=== PATIENT | male | born 1950 | race Caucasian/White ===

== ENCOUNTER 2017-11-01 10:02 | Day surgery (SDC) | payer MEDICARE ==
[2017-10-29 10:14] VITALS: BMI 43.9
--- NOTE | 2017-11-01 05:12 | HP ---
HISTORY AND PHYSICAL CHIEF COMPLAINT: Left postauricular mass. HISTORY OF PRESENT ILLNESS: The patient is a very pleasant 66-year-old male who was referred to my office for evaluation of a 6-9 month history of a lump behind his left ear. The patient states that it is not painful or tender, but it has increased in size over the last few months. He is a nonsmoker. He denies any recent injuries or recent surgeries in the area of the lump. He also denies any complaints of hearing loss. At the time that he was seen in my office clinical examination revealed the patient had a 1-1/2 to 2 cm well circumscribed mobile nontender, nonfluctuant mass located in the left postauricular area. No other suspicious masses were noted. It was recommend the patient undergo excision of this mass under general anesthesia. PAST MEDICAL HISTORY: Past medical history reveals that the patient has an ALLERGY TO SULFA AND BACTRIM. MEDICATIONS: Current medications include Lipitor, lisinopril. There is a history of hypertension, but no history of diabetes mellitus or asthma. REVIEW OF SYSTEMS: Review of systems revealed that the cardiovascular system is positive for hypertension and the metabolic endocrine system is positive for hypercholesterolemia. Remainder of the review of systems is unremarkable. PREVIOUS SURGERIES: Include bilateral cataract surgery and also excision of pilonidal cyst. PHYSICAL EXAMINATION: This patient is a pleasant 66-year-old male who is alert and cooperative. HEENT examination: The patient is normocephalic. Tympanic membranes are normal. Middle ear spaces are free of any fluid or infection. Examination of the left postauricular area reveals that there is a 1-1/2 to 2 cm well circumscribed, nontender, mobile, nonfluctuant mass behind the left ear. No other suspicious masses are noted. Pupils equal, round, react to light and accommodation. Extraocular movements within normal limits. Intranasal examination reveals severe septal deviation with compensatory hypertrophy of the inferior turbinates. Examination of oropharynx, cranial nerves 2 through 12 and remainder of the head and neck exam are within normal limits. Chest/cardiovascular: Both lung mckeon are clear to percussion and auscultation. The patient is in regular sinus rhythm. S1, S2 are present without any murmurs, S3s or S4s. Peripheral pulses are bilaterally symmetrical and within normal limits. ABDOMEN: There is no evidence of any masses, megaly, or tenderness. ABDOMEN: Soft. Skin is unremarkable. Musculoskeletal and neurological within normal limits. Rectal exam is deferred at this time because the patient has this done on a regular basis at his family physician's office. The remainder of physical exam is unremarkable. ASSESSMENT: Left postauricular mass. PLAN: The patient is scheduled to undergo excision of left post auricular mass under general anesthesia. Attention RNs in the pre-surgical area: I have not ordered any pre-surgical prophylactic antibiotics for this patient. If the pharmacy department sends any pre- surgical prophylactic antibiotics to the presurgical area for this patient, that medication should be returned to the pharmacy department and please make sure that the patient's account is credited appropriately. The only medications that I have ordered for this patient to receive in the pre-surgical area is Ofirmev 1000 mg IV to be given once an intravenous line has been established. I have discussed the risks, benefits and alternative therapies for the above-mentioned procedure and for both sedation/analgesia as well as necessary blood product administration, if indicated, as they pertain to this patient. The patient has indicated his or her understanding and acceptance of the risks and procedures discussed. MMODL / IJN: [id number] /
[~2017-11-01 10:02] MED LIST: DEXAMETHASONE SOD PHOSPHATE 10 MG/ML 1 ML VIAL IV ONE; LACTATED RINGERS 1,000 ML IV SCH; MIDAZOLAM 2 MG/2 ML VIAL IV PRN; ONDANSETRON 4 MG/2 ML VIAL IVP ONE; fentaNYL (PF) 50 MCG/ML 2 ML AMP IV PRN
[2017-11-01 10:56] VITALS: RESP 16; TEMP 97.8
[2017-11-01] MEDS ORDERED: LIDOCAINE 1% 20 ML VIAL (10MG/ML) FOR IV START INTRADERMA ONE (11:00)
[2017-11-01] MEDS ORDERED: ACETAMINOPHEN IV (For NPO) 1,000 MG in EMPTY BAG 1 BAG IVPB ONE (11:10)
[2017-11-01] MEDS ORDERED: PROPOFOL 10 MG/ML 20 ML VIAL IV ONE (12:10)
[2017-11-01] MEDS ORDERED: SUCCINYLCHOLINE CHLORIDE VIAL 200 MG/10 ML VIAL IV ONE (12:10)
[2017-11-01] MEDS ORDERED: LIDOCAINE 1% INJ 10MG/ML (20 ML MDV) ONE (12:10)
[2017-11-01] MEDS ORDERED: MIDAZOLAM 2 MG/2 ML VIAL ONE (12:10)
[2017-11-01] MEDS ORDERED: fentaNYL (PF) 50 MCG/ML 2 ML AMP ONE (12:10)
[2017-11-01] MEDS ORDERED: BUPIVACAINE (PF) 0.5% 30 ML VIAL SQ ONE ×4 (12:27→13:46)
[2017-11-01] MEDS ORDERED: BACITRACIN 500 UNIT/GM OINT 28.4 GM TUBE TOPICAL ONE (13:30)
[2017-11-01 14:54] VITALS: BP 140/78; PULSE 62
--- NOTE | 2017-11-03 17:36 | OP ---
OPERATIVE REPORT DATE OF SURGERY: 11/01/2017 PREOPERATIVE DIAGNOSIS: Left postauricular mass. POSTOPERATIVE DIAGNOSIS: Left postauricular mass, final pathology pending. ANESTHESIA: General. OPERATIVE PROCEDURE: Excision of left postauricular mass, approximately 1-1.5 cm in diameter. SURGEON: Dr. Beck. COMPLICATIONS: None. ESTIMATED BLOOD LOSS: Less than 5 mL. OPERATIVE PROCEDURE: The patient is placed operating table in supine position and after uneventful induction and endotracheal intubation, satisfactory general anesthesia was obtained. The patient's left rehan face and ear were prepped and draped in usual customary fashion. The lesion in question was palpated and the proposed incision was outlined in an elliptical fashion. This was done in such a manner as to be able to use the overlying skin for retraction. Next, using a #15 scalpel blade, an incision was made through the skin only in the usual fashion. Next, using a skin hook to retract the superior part of the skin to be excised and a mosquito hemostat dissection was carried down through the subcutaneous tissue and subcutaneous fat down to the overlying periosteum of the skull. A similar procedure was carried out on the inferior portion of this skin flap which was used to retract the mass in question. Next, using the mosquito hemostats and also peanut and sharp dissection, the lesion which was quite adherent to the overlying skin and subcutaneous tissue because of recent inflammation was carefully dissected in such a fashion as not to rupture what appeared to be a capsule which had formed around the lesion. This was done in such a fashion as that the capsule remained intact except toward the end of the dissection there was a very small rupture, but overall the capsule remained intact in the entire mass which was approximately 1-1.5 cm in diameter was excised completely from the patient and was placed in formalin for permanent sectioning. Hemostasis was obtained using electrocautery. The dissection time was somewhat extended. That is to say, normally this type of procedure would take approximately 30 minutes where as this procedure took approximately 90 minutes because of the overlying inflammation and the tedious dissection which was necessary to avoid rupturing the lesion. The underlying space was closed in multiple layers using 4- 0 rapid absorbing Vicryl to reapproximate underlying subcutaneous fat and subcutaneous tissue. The skin edges were carefully approximated using 4-0 Vicryl in an interrupted buried fashion. The skin was further approximated using a single 4-0 chromic suture in a running fashion. Finally, Dermabond tissue glue was applied over the incision itself. At this point, the procedure was terminated. There were no intraoperative complications. The patient tolerated procedure well and was returned to recovery room in satisfactory condition. Again, normal excision time for this size lesion would have been 30 minutes, but because of the chronic inflammation that was around the lesion, the surgery time was extended to approximately 90 minutes. Final pathology is pending. MMODL / IJN: [id number] /
== END 2017-11-01 15:27 | disposition home or self-care (01) ==
LOC: OR 10:02
PROVIDERS: ATTEND Otolaryngology
DX: L72.0 Epidermal cyst (principal); I10 Essential (primary) hypertension; E78.00 Pure hypercholesterolemia, unspecified; Z79.899 Other long term (current) drug therapy; Z88.2 Allergy status to sulfonamides
CPT/HCPCS: 88304; 11442; J2250; J0330; J1100; J0690; J2405; J2001; J3010; J0131; J2704

== ENCOUNTER → 2018-01-14 | Outpatient (CLI) | payer MEDICARE ==
--- NOTE | 2018-01-15 11:12 | ECHOF ---
Referral Reason:I35.9 Nonrheumatic aortic valve disorder, unspecif MEASUREMENTS -------- HEIGHT: 180.3 cm WEIGHT: 145.1 kg BP: 155/74 RVIDd: 3.7 cm (< 3.3) IVSd: 1.5 cm (0.6 - 1.1) LVIDd: 4.8 cm (3.9 - 5.3) LVPWd: 1.5 cm (0.6 - 1.1) IVSs: 2.0 cm LVIDs: 3.1 cm LVPWs: 1.9 cm LA Diam: 3.8 cm (2.7 - 3.8) LAESV Index (A-L): 27.58 ml/m Ao Diam: 3.7 cm (2.0 - 3.7) AV Cusp: 1.6 cm (1.5 - 2.6) MV EXCURSION: 9.761 mm (> 18.000) MV EF SLOPE: 24 mm/s (70 - 150) EPSS: 0.5 cm MV E Trenton: 0.65 m/s MV DecT: 520 ms MV A [place]: 1.06 m/s MV E/A Ratio: 0.62 AV maxP.22 mmHg AV meanP.90 mmHg FINDINGS -------- Sinus rhythm. This was a technically difficult study with suboptimal views. The left ventricular size is normal. There is moderate concentric left ventricular hypertrophy. O verall left ventricular systolic function is normal with, an EF between 60 - 65 %. The right ventricle is mildly enlarged. Normal LA size by volume 22+/-6 ml/m2. The right atrium is normal in size. 5.0mg of Lumason was utilized for enhancement of images There is moderate aortic valve sclerosis. There is mild aortic stenosis present. Peak/mean gradie nt across the Aortic Valve is 35.22mmHg / 16.90mmHg. Mild mitral annular calcification present. The tricuspid valve appears structurally normal. The pulmonic valve was not well visualized. The aortic root size is normal. Normal inferior vena cava with normal inspiratory collapse consistent with estimated right atrial pre ssure of 5 mmHg. There is no pericardial effusion. CONCLUSIONS -------- 1. Sinus rhythm. 2. This was a technically difficult study with suboptimal views. 3. The left ventricular size is normal. 4. There is moderate concentric left ventricular hypertrophy. 5. Overall left ventricular systolic function is normal with, an EF between 60 - 65 %. 6. The right ventricle is mildly enlarged. 7. Normal LA size by volume 22+/-6 ml/m2. 8. The right atrium is normal in size. 9. 5.0mg of Lumason was utilized for enhancement of images 10. There is moderate aortic valve sclerosis. 11. There is mild aortic stenosis present. 12. Peak/mean gradient across the Aortic Valve is 35.22mmHg / 16.90mmHg. 13. Mild mitral annular calcification present. 14. The tricuspid valve appears structurally normal. 15. The pulmonic valve was not well visualized. 16. The aortic root size is normal. 17. Normal inferior vena cava with normal inspiratory collapse consistent with estimated right atrial pressure of 5 mmHg. 18. There is no pericardial effusion. TENTS ASSEMBLER: Shahla Hastings RDCS
== END | disposition home or self-care (01) ==
LOC: RADECHMAIN 12:47
PROVIDERS: ATTEND Family Medicine
DX: I35.0 Nonrheumatic aortic (valve) stenosis (principal); I70.8 Atherosclerosis of other arteries
CPT/HCPCS: C8929; Q9950; 93306

== ENCOUNTER → 2019-06-17 | Outpatient (CLI) | payer BC, MEDICARE ==
--- NOTE | 2019-06-17 09:05 | US ---
EXAMINATION TYPE: US liver DATE OF EXAM: 06/17/2019 COMPARISON: NONE CLINICAL HISTORY: R17 unspecified jaundice. Patient does not look jaundice, he states that he had abnormal lab work. EXAM MEASUREMENTS: Liver Length: 14.3 cm Gallbladder Wall: 0.2 cm CBD: 0.3 cm Right Kidney: 9.7 x 5.2 x 4.5 cm Patient of large body habitus. Pancreas: Obscured by bowel gas Liver: Increased attenuation, decreased visualization of vessels suggestive of fatty infiltrate Gallbladder: cholelithiasis Evidence for sonographic Bergman's sign: no CBD: wnl Right Kidney: inferior pole partially obscured by overlying bowel gas IMPRESSION: Uncomplicated cholelithiasis with hepatic steatosis.
== END | disposition home or self-care (01) ==
LOC: RADUSWWP 08:10
PROVIDERS: ATTEND Family Medicine
DX: K80.20 Calculus of gallbladder without cholecystitis without obstruction (principal); K76.0 Fatty (change of) liver, not elsewhere classified
CPT/HCPCS: 76705

== ENCOUNTER → 2021-05-18 | Outpatient (CLI) | payer MEDICARE ==
--- NOTE | 2021-05-18 11:38 | BD ---
EXAMINATION TYPE: Axial Bone Density DATE OF EXAM: 05/18/2021 COMPARISON: NONE CLINICAL HISTORY: Height: 69 Weight: 303.4 FRAX RISK QUESTIONS: Alcohol (3 or more units per day): no Family History (Parent hip fracture): no Glucocorticoids (More than 3mos): no (Ex: prednisone, prednisolone, methylprednisolone, dexamethasone, and hydrocortisone). History of Fracture in Adulthood: yes Secondary Osteoporosis: 1. Type 1 Diabetes: no 2. Hyperthyroidism: no 3. Menopause before 45: N/A 4. Malnutrition: no 5. Chronic liver disease: no Rheumatoid Arthritis: no Current Tobacco Use: no RISK FACTORS HISTORY OF: History of Wrist Fracture: right When: age 16 Surgery to Spine/Hip(right/left)/Wrist (right/left): no Family History of Osteoporosis: no Active: no Diet low in dairy products/other sources of calcium: yes Lost more than 2 inches in height since high school: MEDICATIONS: none Additional History: EXAM MEASUREMENTS: Bone mineral densitometry was performed using the Protecode System. Bone mineral density as measured about the Lumbar spine is: ----- L1-L4(G/cm2): 1.410 T Score Values are as follows: ----- L2: 0.8 ----- L3: 1.7 ----- L4: 3.8 ----- L1-L4: 1.9 Bone mineral density : baseline Bone mineral density about the R hip (g/cm2): 1.079 Bone mineral density about the L hip (g/cm2): 1.055 T Score values are as follows: -----R Neck: 0.3 -----L Neck: 0.1 -----R Total: 1.4 -----L Total: 1.4 Bone mineral density : baseline IMPRESSION: Normal (Values between +1 and -1 indicate normal bone mass). Consider repeating this study in 5 year s or sooner if there is some new clinical indication. NOTE: T-SCORE=SD OF THE YOUNG ADULT MEAN.
== END | disposition home or self-care (01) ==
LOC: RADBDWWP 08:14
PROVIDERS: ATTEND Family Medicine
DX: Z13.820 Encounter for screening for osteoporosis (principal)
CPT/HCPCS: 77080

== ENCOUNTER → 2021-11-15 | Outpatient (CLI) | payer MEDICARE ==
--- NOTE | 2021-11-16 09:30 | CA ---
Transthoracic Echo Report Name: Nakul Aparicio Age: 70 Gender: M : 1950 Exam Date: 11/15/2021 14:15 Exam Location: [facility] Ht (in): 72 Wt (lb): 290 Ordering Physician: Shubham Galvez DO Attending/Referring Phys: Georgia Acosta [facility] Concaver Johana Aden RDCS Procedure CPT: Indications: R06.09 Other forms of dyspnea Cardiac Hx: No cardiac hx Technical Quality: Fair Contrast 1: Total Dose (mL): Contrast 2: Total Dose (mL): MEASUREMENTS (Male / Female) Normal Values 2D ECHO LV Diastolic Diameter PLAX 4.5 cm 4.2 - 5.9 / 3.9 - 5.3 cm LV Systolic Diameter PLAX 1.7 cm IVS Diastolic Thickness 1.0 cm 0.6 - 1.0 / 0.6 - 0.9 cm LVPW Diastolic Thickness 1.0 cm 0.6 - 1.0 / 0.6 - 0.9 cm LV Relative Wall Thickness 0.4 RV Internal Dim ED PLAX 4.0 cm LVOT Diameter 1.6 cm LA Volume 87.7 cm??? 18 - 58 / 22 - 52 cm??? M-MODE Aortic Root Diameter MM 3.4 cm LA Systolic Diameter MM 3.2 cm LA Ao Ratio MM 0.9 MV E Point Septal Separation 0.7 cm AV Cusp Separation MM 1.0 cm DOPPLER AV Peak Velocity 348.6 cm/s AV Peak Gradient 48.6 mmHg AV Mean Velocity 274.9 cm/s AV Mean Gradient 32.3 mmHg AV Velocity Time Integral 68.6 cm LVOT Peak Velocity 81.1 cm/s LVOT Peak Gradient 2.6 mmHg AV Area Cont Eq pk 0.5 cm??? MV Area PHT 3.6 cm??? MR Peak Velocity 276.9 cm/s MR Peak Gradient 30.7 mmHg Mitral E Point Velocity 152.6 cm/s Mitral A Point Velocity 43.2 cm/s Mitral E to A Ratio 3.5 MV Deceleration Time 210.7 ms TR Peak Velocity 217.6 cm/s TR Peak Gradient 18.9 mmHg Right Ventricular Systolic Press 22.5 mmHg FINDINGS Left Ventricle Left ventricular ejection fraction is estimated at 55-60 %. Left ventricular wall thickness normal. Left ventricular cavity size normal. Grade 1 diastolic dysfunction. Right Ventricle The right ventricle is normal in size and function. Right Atrium The right atrium is normal in size. Left Atrium Severely increased left atrial volume. Mildly increased left atrial area. Mitral Valve Structurally normal mitral valve without significant stenosis or prolapse. There is mild mitral regurgitation. Aortic Valve [id number] aortic stenosis with a peak gradient of 48.6 mmHg and a mean gradient of 32.3mmHg. No aortic regurge. Diffuse thickening of the aortic valve cusps with reduced excursion. Tricuspid Valve Structurally normal tricuspid valve without significant stenosis. Pulmonary artery systolic pressure is normal. Mild tricuspid regurgitation. Pulmonic Valve Structurally normal pulmonic valve without significant stenosis. There is no pulmonic regurgitation. Pericardium Normal pericardium without effusion. Aorta Normal aortic root dimension. CONCLUSIONS Normal LV size and systolic function. There is mild concentric LVH. There is mild diastolic dysfunction. Moderate to severe aortic stenosis with a mean gradient of 32 mmHg. No pericardial effusion. Mild mitral and tricuspid insufficiency and no significant pulmonary hypertension Previewed by: Dr. Renard Freeman MD (Electronically Signed) Final Date: 16 November 2021 09:29
== END | disposition home or self-care (01) ==
LOC: RADECHMAIN 13:52
PROVIDERS: ATTEND Family Medicine
DX: I08.3 Combined rheumatic disorders of mitral, aortic and tricuspid valves (principal)
CPT/HCPCS: 93306

== ENCOUNTER → 2021-12-27 | Outpatient (CLI) | payer MEDICARE ==
[2021-12-27 23:33] LABS: HCT 40.1 % (39.6-50.0); MCHC 34.9 g/dL (32.0-37.0); MCV 83.2 fL (80.0-97.0); Mean Platelet Volume 10.8 fL (9.5-12.2); NRBC Per 100 WBC 0 /100 WBCS (0.0-0.0); Platelet Count 222 X 10*3/uL (140-440); RBC 4.82 X 10*6/uL (4.40-5.60); RDW 13.6 % (11.5-14.5); WBC 4.42 X 10*3/uL (4.50-10.00)
[2021-12-28 00:26] LABS: African American GFR (CKD) 78.5 (60.0-200.0); Anion Gap 10.1 mmol/L (10.00-18.00); BUN/Creat Ratio 8.61 Ratio (12.00-20.00); Blood Urea Nitrogen 9.3 mg/dL (9.0-27.0); Carbon Dioxide 27.6 mmol/L (20.0-27.5); Non-African American GFR(CKD) 67.7 (60.0-200.0); Potassium 4.3 mmol/L (3.5-5.5)
== END | disposition home or self-care (01) ==
LOC: LABWHC1 15:56
PROVIDERS: ATTEND Internal Medicine Cardiovascular Disease
DX: I48.11 Longstanding persistent atrial fibrillation (principal)
CPT/HCPCS: 36415; 80048; 84443; 85027

== ENCOUNTER 2022-01-09 07:50 | Day surgery (SDC) | payer MEDICARE ==
[2022-01-05 16:14] VITALS: BMI 40.5
[2022-01-09 08:19] VITALS: RESP 18; TEMP 98.6
[2022-01-09] MEDS ORDERED: SODIUM CHLORIDE 0.9% 500 ML 500 ML IV ONE (08:19)
[2022-01-09] MEDS ORDERED: fentaNYL (PF) 50 MCG/ML 2 ML AMP ONE (08:41)
[2022-01-09] MEDS: BENZOCAINE SPRAY 1 CAN TOPICAL ONE ×2 (08:53→09:08)
[2022-01-09] MEDS ORDERED: MIDAZOLAM 2 MG/2 ML VIAL IV ONE (09:08)
[2022-01-09] MEDS ORDERED: fentaNYL (PF) 50 MCG/ML 2 ML AMP IV ONE (09:09)
[2022-01-09 10:12] VITALS: BP 136/90; PULSE 64
--- NOTE | 2022-01-10 06:02 | ECHOT ---
TRANSESOPHAGEAL ECHOCARDIOGRAM INDICATION: Aortic stenosis. PROCEDURE NOTE: After obtaining informed consent, transesophageal echocardiogram was performed in left lateral position using an Omniplane probe. Local and IV sedation were obtained using 2 mg of Versed, 25 mcg of fentanyl, and Xylocaine spray. The patient tolerated the procedure well without any obvious immediate complications. The patient received moderate conscious sedation. Total sedation time was 10 minutes. Two-D, color Doppler, and spectral analysis had been performed. FINDINGS: 1. Aortic valve: Aortic valve is a 3-leaflet valve, appears calcified with severe restriction in leaflet mobility with a valve area of 1.1 sq cm by planimetry technique. 2. Aortic root measures within normal limits. 3. Left atrial appendage appears normal. 4. Left atrium appears mildly enlarged. 5. Right atrium and right ventricle seen within normal limits. 6. Left ventricle has normal size and systolic function. 7. There is no evidence of intracardiac thrombus within the left atrial appendage. 8. Mitral valve shows mild central mitral regurgitation. 9. Interatrial septum, there is no evidence of [id number] shunt by color-flow Doppler or [id number] shunt by agitated saline contrast study. CONCLUSIONS: 1. Three-leaflet aortic valve that is calcified and shows severe restriction in leaflet mobility with a valve area of 1.1 sq cm by planimetry. 2. There is mild central mitral regurgitation noted. 3. There is normal LV systolic function. MMODL / IJN: [id number] /
== END 2022-01-09 10:47 | disposition home or self-care (01) ==
LOC: CATHCVL 07:50
PROVIDERS: ATTEND Internal Medicine Cardiovascular Disease
DX: I08.0 Rheumatic disorders of both mitral and aortic valves (principal); I48.11 Longstanding persistent atrial fibrillation; I65.23 Occlusion and stenosis of bilateral carotid arteries; E78.2 Mixed hyperlipidemia; Z82.49 Family history of ischemic heart disease and other diseases of the circulatory system; Z87.891 Personal history of nicotine dependence; Z87.2 Personal history of diseases of the skin and subcutaneous tissue; Z79.01 Long term (current) use of anticoagulants; Z79.899 Other long term (current) drug therapy; Z88.2 Allergy status to sulfonamides
CPT/HCPCS: 93312; 93320; 93325; J2250; J3010

== ENCOUNTER → 2022-07-30 | Outpatient (CLI) | payer MEDICARE ==
--- NOTE | 2022-07-30 11:31 | US ---
EXAMINATION TYPE: US liver DATE OF EXAM: 07/30/2022 COMPARISON: CLINICAL HISTORY: R17 JAUNDICE. Patient was told he has a fatty liver. No prior abdomen surgeries. TECHNIQUE: Multiple sonographic images of the right upper quadrant are obtained. FINDINGS: EXAM MEASUREMENTS: Liver Length: 16.0 cm Gallbladder Wall: 0.2 cm CBD: 0.4 cm Right Kidney: 11.1 x 5.9 x 5.1 cm VISION MIXER NOTES: Limited due to overlying bowel gas Pancreas: Body and tail obscured by overlying bowel gas Liver: wnl Gallbladder: Multiple mobile echogenic foci Evidence for sonographic Bergman's sign: neg CBD: wnl Right Kidney: No hydronephrosis or masses seen at time of scan IMPRESSION: Uncomplicated cholelithiasis.
== END | disposition home or self-care (01) ==
LOC: RADUSWWP 10:07
PROVIDERS: ATTEND Family Medicine
DX: K80.20 Calculus of gallbladder without cholecystitis without obstruction (principal); R17 Unspecified jaundice
CPT/HCPCS: 76705

== ENCOUNTER → 2022-12-04 | Outpatient (CLI) | payer MEDICARE ==
--- NOTE | 2022-12-04 15:32 | P.SLEEP ---
History of Present Illness H&P Date: 12/04/22 This is a 71-year-old male patient referred to me for sleep apnea evaluation. The patient is accompanied today by his . The patient is having excessive fatigue and sleepiness during the day and this is quite concerning to the . He is known to have multiple medical problems and comorbidities. He is snoring very loud. He has been noted to put breathing in the middle of the night and his current Shelby score is at 9. He goes to bed at around 11 PM and awakes at 6:30 AM in the morning. He states and various body positions. No excessive Restasis and lower extremities. No sleepwalking or sleep talking. Does not take any naps during the day. He used to weigh around 140 pounds and his weight is currently down to 275. He denies waking up in the middle of the night unless she has some body aches and pains and he has noted to sleep better while taking the nonsteroidal anti-inflammatory medication. No nighttime chest pain or shortness of breath or heartburn. No seizure activity. No headaches. Review of Systems Constitutional: Reports daytime sleepiness, Reports fatigue, Reports weight loss Eyes: denies as per HPI, denies blurred vision, denies bulging eye, denies decreased vision, denies diplopia, denies discharge, denies dry eye, denies irritation, denies itching, denies pain, denies photophobia, denies loss of peripheral vision, denies loss of vision, denies tunnel vision/blind spots Ears: deny: decreased hearing, ear discharge, earache, tinnitus Ears, nose, mouth and throat: Reports as per HPI Breasts: absent: as per HPI, gynecomastia Cardiovascular: Reports as per HPI Respiratory: Reports snoring Gastrointestinal: Reports as per HPI Genitourinary: Reports as per HPI Musculoskeletal: Reports as per HPI Musculoskeletal: absent: ankle pain, ankle stiffness, ankle swelling Integumentary: Reports as per HPI Neurological: Reports as per HPI Psychiatric: Reports as per HPI Endocrine: Reports fatigue Hematologic/Lymphatic: Reports as per HPI Allergic/Immunologic: Reports as per HPI Past Medical History Past Medical History: Coronary Artery Disease (CAD), Hyperlipidemia, Hypertension Additional Past Medical History / Comment(s): Abdominal aortic aneurysm, Gilbert's disease, BPH, hyperlipidemia, obesity, aortic stenosis, hypertension, coronary artery disease History of Any Multi-Drug Resistant Organisms: None Reported Additional Past Surgical History / Comment(s): Bilateral cataracts removed with lens implants, pilonidal cyst removal. Past Anesthesia/Blood Transfusion Reactions: No Reported Reaction Past Alcohol Use History: Occasional Additional Past Alcohol Use History / Comment(s): Quit smoking 25 yrs ago. - Past Family History Father Family Medical History: Cancer Additional Family Medical History / Comment(s): Throat and prostate cancer. Brother(s) Family Medical History: Cancer Additional Family Medical History / Comment(s): 1/2 BROTHER Medications and Allergies Home Medications and Allergies Comment(s): Lipitor 40 mg by mouth daily, there is no pleural 20 mg by mouth daily, Eliquis 5 mg by mouth twice a day, vitamin D, Home Medications Medication Instructions Recorded Confirmed Type Apixaban [Eliquis] 5 mg PO BID 01/05/22 01/09/22 History Atorvastatin [Lipitor] 20 mg PO DAILY 01/05/22 01/09/22 History Allergies Allergy/AdvReac Type Severity Reaction Status Date / Time sulfamethoxazole Allergy Rash/Hives Verified 01/09/22 08:04 [From Bactrim] trimethoprim [From Bactrim] Allergy Rash/Hives Verified 01/09/22 08:04 Physical Exam BP is 120/86, pulse is 80, respirations 16, temperature is at 97.4 and oxygen saturations 97% on room air oxygen. The patient's body weight is 282 pounds with a BMI of 40.8 and the size of the neck is around 17 inches. The patient's Shelby score is at 9. The patient appeared well nourished and normally developed. Vital signs as documented. Head exam is unremarkable. No scleral icterus or corneal arcus noted. Neck is without jugular venous distension, thyromegaly, or carotid bruits. The patient has very poor dental condition. The patient has a Mallampati class IV. The patient has a slight overbite. Carotid upstrokes are brisk bilaterally. Lungs are clear to auscultation and percussion. Cardiac exam reveals the PMI to be normally sized and situated. Rhythm is regular. First and second heart sounds normal. No murmurs, rubs or gallops. Abdominal exam reveals normal bowel sounds, no masses, no organomegaly and no aortic enlargement. Extremities are nonedematous and both femoral and pedal pulses are normal. Examination of the skin revealed no evidence of significant rashes, suspicious appearing nevi or other concerning lesions.Neurologically, the patient is awake and alert and the patient does not have any focal neurological deficit. Cranial nerves are essentially intact. Assessment and Plan Plan: Chronic hypersomnia with an Shelby of 9 under investigation, rule out possib ility of obstructive sleep apnea Loud snoring and witnessed apneas Chronic fatigue and sleepiness, possibly secondary to above History of obesity with successful weight loss over the years and the current body mass index is 40.8 Coronary artery disease Aortic stenosis Hypertension Hyperlipidemia BPH Abdominal aortic aneurysm Plan Proceed with a screening polysomnography. We'll make decisions on treatment options based on the results of the sleep study. Sleep Note - Sleep Note Sleep Note: Temperature: Pulse Rate: Respiratory Rate: Blood Pressure: SpO2: Height: Weight: BMI: Neck Circumference:
== END ==
LOC: 3 N SLEEP 13:03
PROVIDERS: ATTEND Internal Medicine Critical Care Medicine
DX: R06.83 Snoring (principal); E66.9 Obesity, unspecified; I25.10 Atherosclerotic heart disease of native coronary artery without angina pectoris; I10 Essential (primary) hypertension; E78.5 Hyperlipidemia, unspecified; N40.0 Benign prostatic hyperplasia without lower urinary tract symptoms; R06.81 Apnea, not elsewhere classified; R53.83 Other fatigue; I71.40 Abdominal aortic aneurysm, without rupture, unspecified; I35.0 Nonrheumatic aortic (valve) stenosis; Z68.41 Body mass index [BMI] 40.0-44.9, adult; Z88.2 Allergy status to sulfonamides; Z88.8 Allergy status to other drugs, medicaments and biological substances; Z79.01 Long term (current) use of anticoagulants; Z87.891 Personal history of nicotine dependence
CPT/HCPCS: 99211

== ENCOUNTER 2023-01-22 08:53 | Day surgery (SDC) | payer MEDICARE ==
[~2023-01-22 08:53] MED LIST changes: +ALPRAZolam 0.25 MG TAB PO PRN; +ALPRAZolam 0.5 MG TAB PO PRN; +ASPIRIN 325 MG TAB PO STA; -DEXAMETHASONE SOD PHOSPHATE 10 MG/ML 1 ML VIAL IV ONE; +HEPARIN SODIUM,PORCINE (1 ML) 2,500 UNIT in SODIUM CHLORIDE 0.9% 250 ML IRRIGATION PRN; +HEPARIN SODIUM,PORCINE 10,000 UNIT in SODIUM CHLORIDE 0.9% 1,000 ML IRRIGATION PRN; -LACTATED RINGERS 1,000 ML IV SCH; -MIDAZOLAM 2 MG/2 ML VIAL IV PRN; +NITROGLYCERIN SL TABS 0.4 MG TAB SUBLINGUAL PRN; -ONDANSETRON 4 MG/2 ML VIAL IVP ONE; +SODIUM CHLORIDE 0.9% 1,000 ML in EMPTY BAG 1 BAG IV SCH; -fentaNYL (PF) 50 MCG/ML 2 ML AMP IV PRN
[2023-01-22] MEDS ORDERED: SODIUM CHLORIDE 0.9% 1,000 ML IV ONE (09:00)
[2023-01-22 09:27] VITALS: RESP 16; TEMP 97.1
[2023-01-22] MEDS ORDERED: fentaNYL (PF) 50 MCG/ML 2 ML AMP ONE (10:10)
[2023-01-22] MEDS ORDERED: LIDOCAINE 1% INJ 10MG/ML (20 ML MDV) ONE (10:10)
[2023-01-22] MEDS ORDERED: HEPARIN SODIUM 1,000 UN/ML (10ML VL) ONE (10:10)
[2023-01-22] MEDS ORDERED: VERAPAMIL 2.5 MG/ML 2 ML AMP ONE (10:10)
[2023-01-22] MEDS ORDERED: IV FLUID CONTINUATION 900 ML IV ONE (10:18)
[2023-01-22] MEDS: fentaNYL (PF) 50 MCG/ML 2 ML AMP IVP ONE ×2 (10:25→11:09)
[2023-01-22] MEDS ORDERED: MIDAZOLAM 2 MG/2 ML VIAL IVP ONE (10:26)
[2023-01-22] MEDS ORDERED: BENZOCAINE SPRAY 1 CAN TOPICAL ONE (10:26)
[2023-01-22] MEDS ORDERED: LIDOCAINE 1% INJ 10MG/ML (5 ML VIAL-PF) SQ ONE (10:42)
[2023-01-22] MEDS ORDERED: VERAPAMIL SYRINGE (5 MG/10 ML) INTRAARTER ONE (10:45)
[2023-01-22] MEDS ORDERED: HEPARIN SODIUM 1,000 UN/ML (10ML VL) IV ONE (10:45)
[2023-01-22] MEDS ORDERED: LIDOCAINE 1% INJ 10MG/ML (20 ML MDV) SQ ONE (10:53)
--- NOTE | 2023-01-22 10:58 | ECHOT ---
TRANSESOPHAGEAL ECHOCARDIOGRAM INDICATION: Aortic stenosis. PROCEDURE NOTE: After obtaining informed consent, transesophageal echocardiogram was performed in left lateral position using an Omniplane probe. Local and IV sedation were obtained using Xylocaine spray, intravenous Versed and fentanyl. The patient tolerated the procedure well without any obvious immediate complications. Total sedation time was 10 minutes. FINDINGS: 1. Aortic valve. Aortic valve is a 3-leaflet valve that is calcified and shows moderate to severe restriction in leaflet mobility. By planimetry technique, the valve area is 1.4 space centimeters. There is mild eccentric jet of aortic regurgitation noted. There is asymmetrical septal hypertrophy. Mitral valve is anatomically normal. There is mild central mitral regurgitation noted. Tricuspid valve shows mild tricuspid regurgitation. Left atrium appears mildly enlarged. Right atrium, right ventricle seen within normal limits. 2. Left ventricle has normal size, systolic function. 3. Aortic root measures within normal limits. 4. Interatrial septum, there is no evidence of [id number] shunt by color-flow Doppler or [id number]-hu-[id number] shunt by agitated saline contrast study. CONCLUSION: Moderate aortic stenosis involving tricuspid aortic valve that is calcified and shows restricted leaflet mobility. PLAN: The patient will undergo cardiac catheterization to rule out significant CAD and if this workup is negative, we will continue to manage him with optimal medical therapy. MMODL / IJN: [id number] /
[2023-01-22] MEDS ORDERED: IOPAMIDOL-370 100ML BTL INJ ONE (11:19)
[2023-01-22] MEDS ORDERED: RX INFO: IV CONTRAST WAS GIVEN 1 EACH MISC MISCELLANE PRN (12:07)
--- NOTE | 2023-01-22 12:10 | CC ---
CARDIAC CATHETERIZATION REPORT INDICATION: 1. Unstable angina. 2. Moderate aortic stenosis. PROCEDURE NOTE: After obtaining informed consent, left heart catheterization and coronary angiogram were performed via the right femoral artery using standard Genesis catheters. The patient tolerated the procedure well without any obvious immediate complications. A femoral angiogram was performed, and Angio-Seal will be deployed for hemostasis. The patient received moderate conscious sedation. Total sedation time was 24 minutes. I initially tried right radial catheterization on him. I obtained right radial artery access using Seldinger technique. A 6-Kiswahili sheath was placed. However, because of significant vasospasm, we cannot pass the catheter across the brachial artery. Hence, I decided to proceed with the femoral catheterization. Dr. Alvarado obtained vascular access from the right groin. The patient completed the procedure without any obvious immediate complications. He will have a TR band for right radial hemostasis and have Angio-Seal for right femoral artery hemostasis. FINDINGS: HEMODYNAMICS: 1. Left ventricular end-diastolic pressure is 8 mm. There is no significant gradient across the aortic valve. 2. Left ventriculogram: Left ventriculogram is not performed. 3. The gradient across the aortic valve was 30 mm consistent with moderate aortic stenosis. ANGIOGRAPHIC DATA: Left main coronary artery appears calcified but is free of significant stenosis. It divides into left anterior descending coronary artery and circumflex coronary artery. LAD and its branches, circumflex coronary artery and its branches are free of significant stenosis. There is mild atherosclerotic block noted in the LAD. Right coronary artery is a large dominant vessel and is free of significant stenosis. CONCLUSIONS: 1. Mild nonobstructive CAD. 2. Moderate aortic stenosis. PLAN: I reviewed angiographic data with the patient and told him that his shortness of breath is probably noncardiac in origin, it could be related to obesity and full physical fitness. He was to undergo surgery under general anesthesia by Dr. Coleman for some cyst on his back and he can proceed with it now. MMODL / IJN: [id number] /
[2023-01-22] MEDS ORDERED: SODIUM CHLORIDE 0.9% 1,000 ML IV SCH (12:15)
--- NOTE | 2023-01-22 12:26 | LTR ---
Dear Shubham, I performed cardiac catheterization and AMMY on Nakul Aparicio. I am happy to report to you that the patient does not have significant obstructive CAD and only has moderate aortic stenosis at this time and does not require aortic valve replacement. I am going to let him go through the surgery that he was planning on to have a cyst removed from his back by Dr. Coleman. Thank you for giving me the privilege of participating in the care of this pleasant gentleman. Sincerely, NINA / TOBIN: [id number] /
[2023-01-22 17:18] VITALS: BP 126/61; PULSE 65
== END 2023-01-22 17:01 | disposition home or self-care (01) ==
LOC: CATHCVL 08:53
PROVIDERS: ATTEND Internal Medicine Cardiovascular Disease
DX: I25.10 Atherosclerotic heart disease of native coronary artery without angina pectoris (principal); I08.3 Combined rheumatic disorders of mitral, aortic and tricuspid valves; F17.210 Nicotine dependence, cigarettes, uncomplicated; Z82.49 Family history of ischemic heart disease and other diseases of the circulatory system; Z88.2 Allergy status to sulfonamides; Z79.01 Long term (current) use of anticoagulants; Z79.899 Other long term (current) drug therapy
CPT/HCPCS: 93312; 93320; 93325; 93458; C1769 ×4; C1760; C1894 ×2; J2250; J2001 ×2; J3010; Q9967

== ENCOUNTER → 2023-02-06 | Outpatient (CLI) | payer MEDICARE ==
--- NOTE | 2023-02-06 15:39 | XR ---
EXAMINATION TYPE: XR shoulder complete LT DATE OF EXAM: 02/06/2023 COMPARISON: NONE HISTORY: Pain TECHNIQUE: Three views are submitted. FINDINGS: The osseous structures are intact. There is no acute fracture or dislocation. AC joint arthropathy w ith significant glenohumeral joint arthropathy. IMPRESSION: 1. Severe glenohumeral joint arthropathy. 2. Moderate AC joint arthropathy.
== END | disposition home or self-care (01) ==
LOC: RADXRMAIN 14:40
PROVIDERS: ATTEND Family Medicine
DX: M19.012 Primary osteoarthritis, left shoulder (principal)

== ENCOUNTER 2023-02-25 07:19 | Day surgery (SDC) | payer MEDICARE ==
[~2023-02-25 07:19] MED LIST changes: -ALPRAZolam 0.25 MG TAB PO PRN; -ALPRAZolam 0.5 MG TAB PO PRN; -ASPIRIN 325 MG TAB PO STA; +DEXAMETHASONE SOD PHOSPHATE 4 MG/ML 1 ML VIAL IV ONE; -HEPARIN SODIUM,PORCINE (1 ML) 2,500 UNIT in SODIUM CHLORIDE 0.9% 250 ML IRRIGATION PRN; -HEPARIN SODIUM,PORCINE 10,000 UNIT in SODIUM CHLORIDE 0.9% 1,000 ML IRRIGATION PRN; +HYDROmorphone 0.5 MG/0.5 ML SYRINGE IVP PRN; +LACTATED RINGERS 1,000 ML IV SCH; -NITROGLYCERIN SL TABS 0.4 MG TAB SUBLINGUAL PRN; +ONDANSETRON 4 MG/2 ML VIAL IVP ONE; -SODIUM CHLORIDE 0.9% 1,000 ML in EMPTY BAG 1 BAG IV SCH
[2023-02-25] MEDS ORDERED: HEPARIN SODIUM,PORCINE/PF 5,000 UNIT/0.5 ML SYRINGE SQ ONE (07:32)
[2023-02-25] MEDS ORDERED: ACETAMINOPHEN TAB 500 MG TAB ONE (07:32)
[2023-02-25] MEDS ORDERED: LACTATED RINGERS 1,000 ML IV ONE (07:42)
--- NOTE | 2023-02-25 08:37 | P.GSHP ---
History of Present Illness H&P Date: 02/25/23 Chief Complaint: Multiple sebaceous cysts Patient here today for elective excision multiple back sebaceous cyst. The patient has had numerous in the past many been infected previously. He has several that are enlarging and wants to have the remainder of the palpable ones removed. He is been seen by cardiology and cleared for surgery. Past Medical History Past Medical History: Coronary Artery Disease (CAD), Hyperlipidemia, Osteoa rthritis (OA) Additional Past Medical History / Comment(s): Abdominal aortic aneurysm ? obesity has lost wt 5yrs ago, aortic stenosis, hx hypertension,normal with wt loss no meds at this time. arthritis left shoulder. sebaceous cysts to back to be removed. just had a sleep test.no results yet., cellulitis History of Any Multi-Drug Resistant Organisms: None Reported Additional Past Surgical History / Comment(s): Bilateral cataracts removed with lens implants, pilonidal cyst removal x2. Past Anesthesia/Blood Transfusion Reactions: No Reported Reaction Smoking Status: Former smoker - Past Family History Father Family Medical History: Cancer Additional Family Medical History / Comment(s): Throat and prostate cancer. Brother(s) Family Medical History: Cancer Additional Family Medical History / Comment(s): 1/2 BROTHER prostate Medications and Allergies Home Medications Medication Instructions Recorded Confirmed Type Apixaban [Eliquis] 5 mg PO BID 01/05/22 02/25/23 History Atorvastatin [Lipitor] 20 mg PO DAILY 01/05/22 02/25/23 History Ibuprofen [Motrin Ib] 400 mg PO HS 01/16/23 02/25/23 History Unk Hyaluronic 2 tab PO DAILY 01/16/23 02/25/23 History Unk Vitamin D 1 tab PO DAILY 01/16/23 02/25/23 History Acetaminophen [Tylenol] 650 mg PO 02/25/23 History Allergies Allergy/AdvReac Type Severity Reaction Status Date / Time sulfamethoxazole Allergy Rash/Hives Verified 02/21/23 14:29 [From Bactrim] trimethoprim [From Bactrim] Allergy Rash/Hives Verified 02/21/23 14:29 adhesvie tape AdvReac Unknown Uncoded 02/21/23 14:42 Surgical - Exam Vital Signs Temp Pulse Resp BP Pulse Ox 97.2 F L 82 18 154/86 97 02/25/23 07:40 02/25/23 07:40 02/25/23 07:40 02/25/23 07:40 02/25/23 07:40 Physical exam: General: Well-developed, well-nourished HEENT: Normocephalic, sclerae nonicteric Abdomen: Nontender, nondistended Extremities: No edema, 7 separate sebaceous cysts across upper and mid back one of them is in the superior neck region Neuro: Alert and oriented Assessment and Plan (1) Sebaceous cyst Narrative/Plan: 72-year-old male with multiple sebaceous cysts involving the posterior aspect of his torso. We'll proceed with surgical excision at this time. Patient was in atrial fib today with a controlled rate. Discuss with cardiology. He was comfortable proceeding with the surgery. Current Visit: Yes Status: Acute Code(s): L72.3 - SEBACEOUS CYST SNOMED Code(s): 224707224
[2023-02-25] MEDS ORDERED: fentaNYL (PF) 50 MCG/ML 2 ML AMP ONE (08:43)
[2023-02-25] MEDS ORDERED: GLYCOPYRROLATE 0.2 MG/ML 2 ML VIAL ONE (08:43)
[2023-02-25] MEDS ORDERED: PHENYLEPHRINE-0.9% NACL SYG 1,000 MCG/10 ML SYRINGE ONE (08:43)
[2023-02-25] MEDS ORDERED: NEOSTIGMINE 1 MG/ML 10 ML VIAL ONE (08:43)
[2023-02-25] MEDS ORDERED: ROCURONIUM 10 MG/ML (5 ML VIAL) IV ONE (08:43)
[2023-02-25] MEDS ORDERED: SUCCINYLCHOLINE CHLORIDE 200 MG/10 ML VIAL IV ONE (08:43)
[2023-02-25] MEDS ORDERED: LIDOCAINE 1% INJ 10MG/ML (20 ML MDV) ONE (08:43)
[2023-02-25] MEDS ORDERED: PROPOFOL 10 MG/ML 20 ML VIAL IV ONE (08:43)
[2023-02-25] MEDS ORDERED: ceFAZolin 1,000 MG VIAL ONE (09:18)
[2023-02-25] MEDS ORDERED: SODIUM CHLORIDE 0.9% 100 ML BAG ONE (09:18)
[2023-02-25] MEDS ORDERED: SODIUM CHLORIDE 0.9% 100 ML with ceFAZolin 3,000 MG IV ONE ×2 (09:19)
[2023-02-25] MEDS ORDERED: BUPIVACAINE (PF) 0.5% 30 ML VIAL SQ ONE ×2 (09:21→10:09)
[2023-02-25 10:34] VITALS: RESP 16; TEMP 97.5
[2023-02-25] MEDS ORDERED: NALOXONE 0.4 MG/ML 1 ML VIAL IV PRN (10:35)
--- NOTE | 2023-02-25 10:39 | P.OP ---
Date of Procedure: 02/25/23 Procedure(s) Performed: PREOPERATIVE DIAGNOSIS: Multiple sebaceous cysts POSTOPERATIVE DIAGNOSIS: Same PROCEDURE: Excision posterior neck sebaceous cyst 1, excision back sebaceous cyst 6, intermediate closure at all sites SURGEON: [place] EBL: 20 mL ANESTHESIA: Gen. COMPLICATIONS: None OPERATIVE PROCEDURE: Patient placed in the prone position after general anesthesia achieved. The posterior neck and back were prepped and draped sterilely. Each sebaceous cyst was excised using elliptical incision. Dis section through the saphenous tissues at all sites took place using both sharp dissection and cautery. We first addressed the neck sebaceous cyst. This measured 1.5 cm in size. Intermediate closure measuring 1.[address] Following that the remaining back sebaceous cysts were excised. There were 3 in the left upper back, one in the right mid back, one in the right lateral back, one in the lower midline back. These measured 1.5, 2.0, 3.0, 4.0, 2.0, 3.0 cm. Intermediate closure took place at all sites using interrupted 3-0 Vicryl sutures. Intermediate closure length on back measured 15.5 cm. Skin closure at all sites took place using interrupted 4-0 nylon sterile dressings were then applied. DISPOSITION: Stable to recovery room
[2023-02-25 11:19] VITALS: BP 104/59; PULSE 81
== END 2023-02-25 11:43 | disposition home or self-care (01) ==
LOC: OR 07:19
PROVIDERS: ATTEND Surgery
DX: L72.3 Sebaceous cyst (principal); I25.10 Atherosclerotic heart disease of native coronary artery without angina pectoris; E78.5 Hyperlipidemia, unspecified; M19.90 Unspecified osteoarthritis, unspecified site; I35.0 Nonrheumatic aortic (valve) stenosis; I10 Essential (primary) hypertension; E66.9 Obesity, unspecified; Z98.42 Cataract extraction status, left eye; Z98.41 Cataract extraction status, right eye; Z93.50 Unspecified cystostomy status; Z87.891 Personal history of nicotine dependence; Z79.01 Long term (current) use of anticoagulants; Z88.2 Allergy status to sulfonamides; Z88.1 Allergy status to other antibiotic agents; Z91.048 Other nonmedicinal substance allergy status; Z79.1 Long term (current) use of non-steroidal anti-inflammatories (NSAID); Z95.828 Presence of other vascular implants and grafts
CPT/HCPCS: 11422; 12041; 11404; 12035; J0330; J1100; J2710; J2405; J0690; J2001; J3010; J2704; J1644; J2371; J0665; 88304; 88305

== ENCOUNTER 2023-03-08 07:27 | Emergency (ER) | payer MEDICARE ==
[2023-03-08] MEDS ORDERED: SODIUM CHLORIDE 0.9% 500 ML 500 ML IV STA (07:50)
[2023-03-08 07:51] VITALS: RESP 18; TEMP 98.1
--- NOTE | 2023-03-08 07:54 | ED ---
General Adult HPI - General Chief complaint: Fall Stated complaint: Fall Time Seen by Provider: 03/08/23 07:30 Source: patient, EMS, RN notes reviewed, old records reviewed Mode of arrival: EMS - History of Present Illness Initial comments: This is a 72-year-old male who states he got up this morning was feeling fine and all of a sudden he just got weak in the legs and fell down to the ground. Patient states he didn't hurt anything he didn't hit his head or neck. Patient denies any complaints currently. Patient's states it is unusual for the patient to not be able to get up off the ground and he was too weak to do so even with her assistance so they came to the emergency department. Currently the patient has no plans whatsoever. Patient states prior to the fall he had no complaints no pain no chest pain or difficulty breathing or shortness of breath per patient denies any recent fever chills or cough per patient has any abdominal pain patient denies dysuria hematuria urinary frequency. Patient denies any back pain. Patient states he just got weak in the legs and fell. Patient states he wasn't lightheaded or dizzy. - Related Data Home Medications Medication Instructions Recorded Confirmed Apixaban [Eliquis] 5 mg PO BID 01/05/22 03/08/23 Atorvastatin [Lipitor] 20 mg PO DAILY 01/05/22 03/08/23 Ibuprofen [Motrin Ib] 400 mg PO HS 01/16/23 03/08/23 Acetaminophen [Tylenol] 650 mg PO Q6H PRN 02/25/23 03/08/23 Cholecalciferol [Vitamin D3 (25 25 mcg PO DAILY 03/08/23 03/08/23 Mcg = 1000 Iu)] Hyaluronate Sodium [Hyaluronic 120 mg PO DAILY 03/08/23 03/08/23 Acid] Previous Rx's Medication Instructions Recorded Ciprofloxacin HCl [Cipro] 500 mg PO Q12HR #20 tablet 03/08/23 Allergies Allergy/AdvReac Type Severity Reaction Status Date / Time sulfamethoxazole Allergy Rash/Hives Verified 03/08/23 07:49 [From Bactrim] trimethoprim [From Bactrim] Allergy Rash/Hives Verified 03/08/23 07:49 adhesvie tape AdvReac Unknown Uncoded 03/08/23 07:49 Review of Systems ROS Statement: Those systems with pertinent positive or pertinent negative responses have been documented in the HPI. ROS Other: All systems not noted in ROS Statement are negative. Past Medical History Past Medical History: Coronary Artery Disease (CAD), Hyperlipidemia, Osteoarthritis (OA) Additional Past Medical History / Comment(s): Abdominal aortic aneurysm ? obesity has lost wt 5yrs ago, aortic stenosis, hx hypertension,normal with wt loss no meds at this time. arthritis left shoulder. sebaceous cysts to back to be removed. just had a sleep test.no results yet., cellulitis History of Any Multi-Drug Resistant Organisms: None Reported Additional Past Surgical History / Comment(s): Bilateral cataracts removed with lens implants, pilonidal cyst removal x2. Past Anesthesia/Blood Transfusion Reactions: No Reported Reaction Past Psychological History: No Psychological Hx Reported Smoking Status: Former smoker - Past Family History Father Family Medical History: Cancer Additional Family Medical History / Comment(s): Throat and prostate cancer. Brother(s) Family Medical History: Cancer Additional Family Medical History / Comment(s): 1/2 BROTHER prostate General Exam - General Exam Comments Initial Comments: GENERAL: Patient is well-developed and well-nourished. Patient is nontoxic and well- hydrated and is in no acute distress. ENT: Neck is soft and supple. No significant lymphadenopathy is noted. Oropharynx is clear. Moist mucous membranes. Neck has full range of motion without eliciting any pain. EYES: The sclera were anicteric and conjunctiva were pink and moist. Extraocular movements were intact and pupils were equal round and reactive to light. Eyelids were unremarkable. PULMONARY: Unlabored respirations. Good breath sounds bilaterally. No audible rales rhonchi or wheezing was noted. CARDIOVASCULAR: There is a regular rate and rhythm without any murmurs gallops or rubs. ABDOMEN: Soft and nontender with normal bowel sounds. SKIN: Very superficial abrasion to the right knee. NEUROLOGIC: Patient is alert and oriented x3. Cranial nerves II through XII are grossly intact. Motor and sensory are also intact. Normal speech, volume and content. Symmetrical smile. MUSCULOSKELETAL: Normal extremities with adequate strength and full range of motion. No lower extremity swelling or edema. No calf tenderness. LYMPHATICS: No significant lymphadenopathy is noted PSYCHIATRIC: Normal psychiatric evaluation. Course Vital Signs 03/08/23 03/08/23 07:29 08:36 Temperature 98.1 F Pulse Rate 112 H 79 Respiratory 18 18 Rate Blood Pressure 116/80 93/63 O2 Sat by Pulse 97 94 L Oximetry Medical Decision Making - Medical Decision Making EKG is interpreted by myself. EKG shows atrial for ablation with rapid ventricular response at 102 bpm QRS is 101 Q-T intervals 331 QTC is 389. Patient's EKG shows no ST segment elevation or depression. Was pt. sent in by a medical professional or institution ([facility] Martinez, [employer]PA[employer]ER, urgent care, hospital, or longterm...) When possible be specific @ -No Did you speak to anyone other than the patient for history (EMS, parent, family, police, friend...)? What history was obtained from this source @ -No Did you review nursing and triage notes (agree or disagree)? Why? @ -I reviewed and agree with nursing and triage notes Were old charts reviewed (outside hosp., previous admission, EMS record, old EKG, old radiological studies, urgent care reports/EKG's, longterm records)? Report findings @ -Reviewed prior charts prior lab work on this patient Differential Diagnosis (chest pain, altered mental status, abdominal pain women, abdominal pain men, vaginal bleeding, weakness, fever, dyspnea, syncope, head ache, dizziness, GI bleed, back pain, seizure, CVA, palpatations, mental health, musculoskeletal)? @ -Differential Weakness: Hypoglycemia, shock, sepsis, hyponatremia, anemia, infection, VT, ETOH, adverse medicine reaction, overdose, stroke, this is not meant to be an all-inclusive list. EKG interpreted by me (3pts min.). @ -As above X-rays interpreted by me (1pt min.). @ -Chest x-ray shows no acute abnormality CT interpreted by me (1pt min.). @ -None done U/S interpreted by me (1pt. min.). @ -None done What testing was considered but not performed or refused? (CT, X-rays, U/S, labs)? Why? @ -None What meds were considered but not given or refused? Why? @ -None Did you discuss the management of the patient with other professionals (professionals i.e. SHA Martinez, [employer] B[employer] REPAIRER, lab, RT, psych nurse, psychotherapist social worker, joinery factory worker, teacher, admissions officer, special education case manager)? Give summary @ -No Was smoking cessation discussed for >3mins.? @ -No Was critical care preformed (if so, how long)? @ -No Were there social determinants of health that impacted care today? How? (Homelessness, low income, unemployed, alcoholism, drug addiction, transportation, low edu. Level, literacy, decrease access to med. care, halfway, rehab)? @ -No Was there de-escalation of care discussed even if they declined (Discuss DNR or withdrawal of care, Hospice)? DNR status @ -No What co-morbidities impacted this encounter? (DM, HTN, Smoking, COPD, CAD, Cancer, CVA, ARF, Chemo, Hep., AIDS, mental health diagnosis, sleep apnea, morbid obesity)? @ -None Was patient admitted / discharged? Hospital course, mention meds given and route, prescriptions, significant lab abnormalities, going to OR and other pertinent info. @ -She had no complaints throughout his ED course. Patient's urine came back infection patient was given a couple grams of Rocephin emergency department since he had no complaints he was going to be discharged home with an antibiotic. Undiagnosed new problem with uncertain prognosis? @ -No Drug Therapy requiring intensive monitoring for toxicity (Heparin, Nitro, Insulin, Cardizem)? @ -No Were any procedures done? @ -No Diagnosis/symptom? @ -Urinary tract infection Acute, or Chronic, or Acute on Chronic? @ -Acute Uncomplicated (without systemic symptoms) or Complicated (systemic symptoms)? @ -default Side effects of treatment? @ -No Exacerbation, Progression, or Severe Exacerbation? @ -No Poses a threat to life or bodily function? How? (Chest pain, USA, VT, pneumonia, PE, COPD, DKA, ARF, appy, cholecystitis, CVA, Diverticulitis, Homicidal, Suicidal, threat to staff... and all critical care pts) @ -No Diagnosis/symptom? @ -Weakness Acute, or Chronic, or Acute on Chronic? @ -Acute Uncomplicated (without systemic symptoms) or Complicated (systemic symptoms)? @ -Complicated Side effects of treatment? @ -none Exacerbation, Progression, or Severe Exacerbation] @ -no Poses a threat to life or bodily function? @ -no - Lab Data Result diagrams: 03/08/23 07:59 03/08/23 07:59 Lab Results 03/08/23 03/08/23 03/08/23 Range/Units 07:59 07:59 07:59 WBC 12.3 H (3.8-10.6) k/uL RBC 4.68 (4.30-5.90) m/uL Hgb 14.1 (13.0-17.5) gm/dL Hct 40.5 (39.0-53.0) % MCV 86.6 (80.0-100.0) fL MCH 30.1 (25.0-35.0) pg MCHC 34.8 (31.0-37.0) g/dL RDW 13.9 (11.5-15.5) % Plt Count 201 (150-450) k/uL MPV 8.3 Neutrophils % 90 % Lymphocytes % 4 % Monocytes % 4 % Eosinophils % 1 % Basophils % 0 % Neutrophils # 11.1 H (1.3-7.7) k/uL Lymphocytes # 0.5 L (1.0-4.8) k/uL Monocytes # 0.5 (0-1.0) k/uL Eosinophils # 0.1 (0-0.7) k/uL Basophils # 0.0 (0-0.2) k/uL PT 11.7 (10.0-12.5) sec INR 1.1 (<1.2) APTT 22.7 (22.0-30.0) sec Sodium (137-145) mmol/L Potassium (3.5-5.1) mmol/L Chloride (98-107) mmol/L Carbon Dioxide (22-30) mmol/L Anion Gap mmol/L BUN (9-20) mg/dL Creatinine (0.66-1.25) mg/dL Est GFR (CKD-EPI)AfAm (>60 ml/min/1.73 sqM) Est GFR (CKD-EPI)NonAf (>60 ml/min/1.73 sqM) Glucose (74-99) mg/dL Plasma Lactic Acid Richy (0.7-2.0) mmol/L Calcium (8.4-10.2) mg/dL Magnesium (1.6-2.3) mg/dL Total Bilirubin (0.2-1.3) mg/dL AST (17-59) U/L ALT (4-49) U/L Alkaline Phosphatase (38-126) U/L Troponin I (0.000-0.034) ng/mL Total Protein (6.3-8.2) g/dL Albumin (3.5-5.0) g/dL Urine Color Yellow Urine Appearance Cloudy (Clear) Urine pH 5.5 (5.0-8.0) Ur Specific [place] 1.021 (1.001-1.035) Urine Protein 1+ H (Negative) Urine Glucose (UA) Negative (Negative) Urine Ketones 1+ H (Negative) Urine Blood Large H (Negative) Urine Nitrite Positive (Negative) Urine Bilirubin Negative (Negative) Urine Urobilinogen <2.0 (<2.0) mg/dL Ur Leukocyte Esterase Large H (Negative) Urine RBC 23 H (0-5) /hpf Urine WBC >182 H (0-5) /hpf Urine WBC Clumps Moderate H (None) /hpf Urine Bacteria Many H (None) /hpf Urine Mucus Rare H (None) /hpf Coronavirus (PCR) (Not Detectd) 03/08/23 03/08/23 03/08/23 Range/Units 07:59 07:59 07:59 WBC (3.8-10.6) k/uL RBC (4.30-5.90) m/uL Hgb (13.0-17.5) gm/dL Hct (39.0-53.0) % MCV (80.0-100.0) fL MCH (25.0-35.0) pg MCHC (31.0-37.0) g/dL RDW (11.5-15.5) % Plt Count (150-450) k/uL MPV Neutrophils % % Lymphocytes % % Monocytes % % Eosinophils % % Basophils % % Neutrophils # (1.3-7.7) k/uL Lymphocytes # (1.0-4.8) k/uL Monocytes # (0-1.0) k/uL Eosinophils # (0-0.7) k/uL Basophils # (0-0.2) k/uL PT (10.0-12.5) sec INR (<1.2) APTT (22.0-30.0) sec Sodium 139 (137-145) mmol/L Potassium 4.2 (3.5-5.1) mmol/L Chloride 106 (98-107) mmol/L Carbon Dioxide 23 (22-30) mmol/L Anion Gap 10 mmol/L BUN 16 (9-20) mg/dL Creatinine 0.86 (0.66-1.25) mg/dL Est GFR (CKD-EPI)AfAm >90 (>60 ml/min/1.73 sqM) Est GFR (CKD-EPI)NonAf 86 (>60 ml/min/1.73 sqM) Glucose 107 H (74-99) mg/dL Plasma Lactic Acid Richy 1.2 (0.7-2.0) mmol/L Calcium 8.8 (8.4-10.2) mg/dL Magnesium 2.0 (1.6-2.3) mg/dL Total Bilirubin 2.8 H (0.2-1.3) mg/dL AST 23 (17-59) U/L ALT 18 (4-49) U/L Alkaline Phosphatase 59 (38-126) U/L Troponin I <0.012 (0.000-0.034) ng/mL Total Protein 6.7 (6.3-8.2) g/dL Albumin 4.1 (3.5-5.0) g/dL Urine Color Urine Appearance (Clear) Urine pH (5.0-8.0) Ur Specific [place] (1.001-1.035) Urine Protein (Negative) Urine Glucose (UA) (Negative) Urine Ketones (Negative) Urine Blood (Negative) Urine Nitrite (Negative) Urine Bilirubin (Negative) Urine Urobilinogen (<2.0) mg/dL Ur Leukocyte Esterase (Negative) Urine RBC (0-5) /hpf Urine WBC (0-5) /hpf Urine WBC Clumps (None) /hpf Urine Bacteria (None) /hpf Urine Mucus (None) /hpf Coronavirus (PCR) (Not Detectd) 03/08/23 Range/Units 07:59 WBC (3.8-10.6) k/uL RBC (4.30-5.90) m/uL Hgb (13.0-17.5) gm/dL Hct (39.0-53.0) % MCV (80.0-100.0) fL MCH (25.0-35.0) pg MCHC (31.0-37.0) g/dL RDW (11.5-15.5) % Plt Count (150-450) k/uL MPV Neutrophils % % Lymphocytes % % Monocytes % % Eosinophils % % Basophils % % Neutrophils # (1.3-7.7) k/uL Lymphocytes # (1.0-4.8) k/uL Monocytes # (0-1.0) k/uL Eosinophils # (0-0.7) k/uL Basophils # (0-0.2) k/uL PT (10.0-12.5) sec INR (<1.2) APTT (22.0-30.0) sec Sodium (137-145) mmol/L Potassium (3.5-5.1) mmol/L Chloride (98-107) mmol/L Carbon Dioxide (22-30) mmol/L Anion Gap mmol/L BUN (9-20) mg/dL Creatinine (0.66-1.25) mg/dL Est GFR (CKD-EPI)AfAm (>60 ml/min/1.73 sqM) Est GFR (CKD-EPI)NonAf (>60 ml/min/1.73 sqM) Glucose (74-99) mg/dL Plasma Lactic Acid Richy (0.7-2.0) mmol/L Calcium (8.4-10.2) mg/dL Magnesium (1.6-2.3) mg/dL Total Bilirubin (0.2-1.3) mg/dL AST (17-59) U/L ALT (4-49) U/L Alkaline Phosphatase (38-126) U/L Troponin I (0.000-0.034) ng/mL Total Protein (6.3-8.2) g/dL Albumin (3.5-5.0) g/dL Urine Color Urine Appearance (Clear) Urine pH (5.0-8.0) Ur Specific [place] (1.001-1.035) Urine Protein (Negative) Urine Glucose (UA) (Negative) Urine Ketones (Negative) Urine Blood (Negative) Urine Nitrite (Negative) Urine Bilirubin (Negative) Urine Urobilinogen (<2.0) mg/dL Ur Leukocyte Esterase (Negative) Urine RBC (0-5) /hpf Urine WBC (0-5) /hpf Urine WBC Clumps (None) /hpf Urine Bacteria (None) /hpf Urine Mucus (None) /hpf Coronavirus (PCR) Not Detected (Not Detectd) Disposition Clinical Impression: Fall, Weakness, Urinary tract infection Disposition: HOME SELF-CARE Condition: Good Instructions (If sedation given, give patient instructions): Fall Prevention for Older Adults (ED), Urinary Tract Infection in Men (ED) Prescriptions: Ciprofloxacin HCl [Cipro] 500 mg PO Q12HR #20 tablet Is patient prescribed a controlled substance at d/c from ED?: No Referrals: Shubham Galvez DO [Primary Care Provider] - 1-2 days Time of Disposition: 09:50
[2023-03-08 08:45] LABS: Basophils % (A) 0 %; Eosinophils # (A) 0.1 k/uL (0-0.7); Eosinophils % (A) 1 %; HCT 40.5 % (39.0-53.0); HGB 14.1 gm/dL (13.0-17.5); Lymphocytes # (A) 0.5 k/uL (1.0-4.8); Lymphocytes % (A) 4 %; MCH 30.1 pg (25.0-35.0); MCHC 34.8 g/dL (31.0-37.0); MCV 86.6 fL (80.0-100.0); Mean Platelet Volume 8.3; Monocytes # (A) 0.5 k/uL (0-1.0); Monocytes % (A) 4 %; Neutrophils # (A) 11.1 k/uL (1.3-7.7); Neutrophils % (A) 90 %; Platelet Count 201 k/uL (150-450); RBC 4.68 m/uL (4.30-5.90); RDW 13.9 % (11.5-15.5); WBC 12.3 k/uL (3.8-10.6)
[2023-03-08 08:50] LABS: Appearance,Urine Cloudy (Clear); Bacteria,Urine Many /hpf; Bilirubin,Urine Negative (Negative); Blood,Urine Large (Negative); Color,Urine Yellow; Glucose,Urine (UA) Negative (Negative); Ketones,Urine 1+ (Negative); Leukocyte Esterase,Urine Large (Negative); Mucus,Urine Rare /hpf; Nitrite,Urine Positive (Negative); PH, Urine 5.5 (5.0-8.0); Protein,Urine 1+ (Negative); RBC,Urine 23 /hpf (0-5); Specific Gravity,Urine 1.021 (1.001-1.035); Urobilinogen,Urine <2.0 mg/dL (<2.0); WBC,Urine >182 /hpf (0-5)
[2023-03-08 08:54] LABS: ALT 18 U/L (4-49); AST 23 U/L (17-59); African American GFR (CKD) >90 (>60 ml/min/1.73 sqM); Albumin 4.1 g/dL (3.5-5.0); Alkaline Phosphatase 59 U/L (38-126); Anion Gap 10 mmol/L; Blood Urea Nitrogen 16 mg/dL (9-20); Calcium 8.8 mg/dL (8.4-10.2); Carbon Dioxide 23 mmol/L (22-30); Chloride 106 mmol/L (98-107); Glucose 107 mg/dL (74-99); Non-African American GFR(CKD) 86 (>60 ml/min/1.73 sqM); Potassium 4.2 mmol/L (3.5-5.1); Sodium 139 mmol/L (137-145); Total Bilirubin 2.8 mg/dL (0.2-1.3); Total Protein 6.7 g/dL (6.3-8.2)
[2023-03-08 09:04] LABS: INR 1.1 (<1.2); Partial Thromboplastin Time 22.7 sec (22.0-30.0); Prothrombin Time 11.7 sec (10.0-12.5)
--- NOTE | 2023-03-08 09:19 | XR ---
EXAMINATION TYPE: XR chest 2V DATE OF EXAM: 03/08/2023 8:47 AM CLINICAL INDICATION:Male, 72 years old with history of Weakness; [facility] COMPARISON: None TECHNIQUE: XR chest 2V Frontal and lateral views of the chest. FINDINGS: Lungs/Pleura: There is no evidence of pleural effusion, focal consolidation, or pneumothorax. Pulmonary vascularity: Unremarkable. Heart/mediastinum: Cardiomediastinal silhouette is unremarkable. Musculoskeletal: No acute osseous pathology. IMPRESSION: No acute cardiopulmonary disease/process.
[2023-03-08] MEDS ORDERED: cefTRIAXone IN SWFI 1,000 MG/10 ML SYRINGE IVP STA (09:36)
[2023-03-08 10:02] VITALS: BP 98/68; PULSE 98
== END 2023-03-08 10:19 | disposition home or self-care (01) ==
LOC: EC 07:27
DX: R53.1 Weakness (principal); N39.0 Urinary tract infection, site not specified; I25.10 Atherosclerotic heart disease of native coronary artery without angina pectoris; I10 Essential (primary) hypertension; E78.5 Hyperlipidemia, unspecified; Z87.891 Personal history of nicotine dependence; Z88.2 Allergy status to sulfonamides; Z88.8 Allergy status to other drugs, medicaments and biological substances; Z79.01 Long term (current) use of anticoagulants; Z79.899 Other long term (current) drug therapy; W18.30XA Fall on same level, unspecified, initial encounter; Z20.822 Contact with and (suspected) exposure to COVID-19
CPT/HCPCS: 99285 ×2; 96374 ×2; 36415; 93005; 80053; 83605; 83735; 84484; 85025; 85610; 85730; 81001; 87635; 71046; J0696

== ENCOUNTER → 2023-07-30 | Outpatient (CLI) | payer MEDICARE ==
--- NOTE | 2023-07-30 15:53 | US ---
EXAMINATION TYPE: US prostate transrectal DATE OF EXAM: 07/30/2023 COMPARISON: NONE CLINICAL INDICATION: Male, 72 years old with history of R97.20 ELEVATED PROSTATE SPECIFIC ANTIGEN [PS A]; PSA 4.6 slightly elevated. This examination was performed using the transrectal probe. EXAM MEASUREMENTS: Gland Size: 4.9 x 3.7 x 5.0 cm Volume: 47.5 Predicted PSA: 5.6 Actual PSA (if available):4.6 Multiple calcifications visualized. IMPRESSION: Prostate glandular enlargement without suspicious lesion. Predicted PSA = volume x 0.12 ng/ml Calculated Volume = 0.5236 x L x W x H
== END | disposition home or self-care (01) ==
LOC: RADUSWWP 12:58
PROVIDERS: ATTEND Family Medicine
DX: N40.0 Benign prostatic hyperplasia without lower urinary tract symptoms (principal); R97.20 Elevated prostate specific antigen [PSA]
CPT/HCPCS: 76872